=== PATIENT | female | born 1965 | race Caucasian/White ===

== ENCOUNTER 2018-02-17 10:31 | Emergency (ER) | payer SELFPAY ==
[2018-02-17 11:50] LABS: Urine Blood NEGATIVE (NEG); Urine Glucose NEGATIVE (NEG); Urine Protein NEGATIVE (NEG); Urine Specific Gravity 1.015 (1.005-1.030); Urine pH 8.5 (5.0-7.0)
--- NOTE | 2018-02-17 13:34 | RAD REPORT ---
EXAM DESCRIPTION: RAD - Chest Single View - 02/17/2018 11:59 am CLINICAL HISTORY: Chest pain, left-sided rib pain after trauma COMPARISON: Rib series same date TECHNIQUE: AP portable chest image was obtained 1146 hours . FINDINGS: Lungs are clear. Heart and vasculature are normal. No measurable pleural effusion and no p neumothorax. No gross bony abnormality seen. No acute aortic findings suspected. IMPRESSION: No acute cardiopulmonary process.
--- NOTE | 2018-02-17 13:34 | RAD REPORT ---
EXAM DESCRIPTION: RAD - Ribs Left - 02/17/2018 11:59 am CLINICAL HISTORY: Left-sided rib pain following trauma COMPARISON: None. FINDINGS: No displaced rib fracture is seen and no non-displaced rib fractures suspected. No aggress cali rib lesion. No underlying pneumothorax, effusion, infiltrate or pulmonary contusion. IMPRESSION: No rib fracture identified. No acute rib, pleural or parenchymal process. If warranted clinically and if it would alter management, a bone scan study could be performed to miguel luate for rib injury that may be occult on plain film.
--- NOTE | 2018-02-17 13:37 | ER ---
Nurse's Notes [facility] Name: Aundrea Prince Age: 52 yrs Sex: Female : 1965 Arrival Date: 02/17/2018 Time: 10:34 Bed 11 Private MD: Diagnosis: Other chest pain-Left Lower Ribs Presentation: 02/17 10:51 Presenting complaint: Patient states: Left sided rib pain 8/10 after leaning over center console in car and felt a pop last night. Denies SOB. Transition of care: patient was not received from another setting of care. Onset of symptoms was February 16, 2018. Care prior to arrival: None. 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 - Social history:: Smoking status: Patient/guardian denies using tobacco. Screenin:04 Abuse screen: Denies threats or abuse. Denies injuries from another. Nutritional aj screening: No deficits noted. Tuberculosis screening: No symptoms or risk factors identified. Fall Risk None identified. Assessment: 11:04 General: Appears in no apparent distress. comfortable, Behavior is calm, cooperative, aj appropriate for age. Pain: Complains of pain in left seventh rib and left eighth rib. Neuro: Level of Consciousness is awake, alert, obeys commands, Oriented to person, place, time, situation. Respiratory: Airway is patent Respiratory effort is even, unlabored, Respiratory pattern is regular, symmetrical. Derm: Skin is intact, is healthy with good turgor, Skin is pink, warm \T\ dry. normal. Musculoskeletal: Reports pain in left seventh rib and left eighth rib. Vital Signs: 10:55 BP 122 / 78; Pulse 71; Resp 16; Temp 98.2; Pulse Ox 100% on R/A; Weight 74.39 kg (R); hb Height 5 ft. 5 in. (165.10 cm); Pain 8/10; 10:55 Body Mass Index 27.29 (74.39 kg, 165.10 cm) hb ED Course: 10:34 Patient arrived in ED. na 10:54 Triage completed. hb 10:55 Arm band placed on left wrist. hb 10:57 Lisa Díaz, RN is Primary Nurse. aj 11:03 Benjamin Grady PA is PHCP. cp 11:03 Ruddy Blanco MD is Attending Physician. cp 11:04 Patient has correct armband on for positive identification. aj 11:04 No provider procedures requiring assistance completed. aj 11:50 X-ray completed. Patient tolerated procedure well. Patient moved back from radiology. jr1 13:43 Patient did not have IV access during this emergency room visit. aj Administered Medications: No medications were administered Outcome: 13:37 Discharge ordered by MD. cp 13:43 Discharged to home ambulatory. aj 13:43 Condition: good 13:43 Discharge instructions given to patient, Instructed on discharge instructions, follow up and referral plans. medication usage, Demonstrated understanding of instructions, follow-up care, medications, Prescriptions given X 3. 13:43 Patient left the ED. aj Signatures: Lisa Díaz, RN RN Victorino Garcia Jennifer jr1 Benjamin Grady PA PA cp Baxter, Heather, RN RN hb Corrections: (The following items were deleted from the chart) 10:55 10:51 Acuity: SERINA 3 hb hb
--- NOTE | 2018-02-17 13:37 | EDPHYS ---
Physician Documentation [facility] Name: Aundrea Prince Age: 52 yrs Sex: Female : 1965 Arrival Date: 02/17/2018 Time: 10:34 Bed 11 Private MD: ED Physician Ruddy Blanco HPI: 02/17 11:17 This 52 yrs old Female presents to ER via Ambulatory with complaints of Left cp Side Pain. 11:17 The patient or guardian reports chest pain that is located primarily in the left cp lateral lower rib area. Onset: The symptoms/episode began/occurred yesterday. Associated signs and symptoms: Pertinent negatives: abdominal pain, cough, lower extremity pain, lower extremity swelling, lightheadedness, near syncope, palpitations, shortness of breath, syncope. 11:17 Patient reports pain left lateral rib area below breast after reaching across center cp console in car last night. 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 - Social history:: Smoking status: Patient/guardian denies using tobacco. ROS: 11:18 Eyes: Negative for injury, pain, redness, and discharge. cp 11:18 Constitutional: Negative for body aches, chills, fever, poor PO intake. 11:18 ENT: Negative for drainage from ear(s), ear pain, sore throat, difficulty swallowing, cp difficulty handling secretions. 11:18 Neck: Negative for pain with movement, pain at rest, stiffness, tenderness, bony tenderness. 11:18 Cardiovascular: Positive for pain below breast left lateral rib area. 11:18 Respiratory: Negative for cough, shortness of breath, wheezing. cp 11:18 Abdomen/GI: Negative for abdominal pain, nausea, vomiting, and diarrhea, constipation, black/tarry stool, rectal bleeding. 11:18 Back: Negative for pain at rest, pain with movement, radiated pain. 11:18 : Negative for urinary symptoms. 11:18 MS/extremity: Negative for injury or acute deformity, decreased range of motion, pain, paresthesias. 11:18 Skin: Negative for cellulitis, rash. 11:18 Neuro: Negative for altered mental status, headache, syncope, near syncope, weakness. 11:18 All other systems are negative. Exam: 11:25 Constitutional: The patient appears in no acute distress, alert, awake, cp non-diaphoretic, non-toxic, well developed, well nourished. 11:25 Head/Face: Normocephalic, atraumatic. cp 11:25 Eyes: Periorbital structures: appear normal, Conjunctiva: normal, no exudate, no injection, Sclera: no appreciated abnormality, Lids and lashes: appear normal, bilaterally. 11:25 ENT: External ear(s): are unremarkable, Nose: is normal, Mouth: Lips: moist, Oral mucosa: moist, Posterior pharynx: is normal, airway is patent, no erythema, no exudate. 11:25 Neck: C-spine: vertebral tenderness, is not appreciated, crepitus, is not appreciated, ROM/movement: is normal, is supple, without pain, no range of motions limitations, no nuchal rigidity. 11:25 Chest/axilla: Inspection: normal, Palpation: crepitus, is not appreciated, tenderness, that is moderate, of the left lateral rib area below breast. 11:25 Cardiovascular: Rate: normal, Rhythm: regular, Pulses: Pulses are 2+ in right radial artery and left radial artery. Edema: is not appreciated, JVD: is not appreciated. 11:25 Respiratory: the patient does not display signs of respiratory distress, Respirations: normal, no use of accessory muscles, no retractions, no splinting, no tachypnea, labored breathing, is not present, Breath sounds: are clear throughout, no decreased breath sounds, no stridor, no wheezing. 11:25 Abdomen/GI: Inspection: abdomen appears normal, Palpation: abdomen is soft and non-tender, in all quadrants, rebound tenderness, is not appreciated, voluntary guarding, is not appreciated, involuntary guarding, is not appreciated. 11:25 Back: vertebral tenderness, is not appreciated. 11:25 Skin: cellulitis, is not appreciated, no rash present. Vital Signs: 10:55 BP 122 / 78; Pulse 71; Resp 16; Temp 98.2; Pulse Ox 100% on R/A; Weight 74.39 kg (R); hb Height 5 ft. 5 in. (165.10 cm); Pain 8/10; 10:55 Body Mass Index 27.29 (74.39 kg, 165.10 cm) hb MDM: 11:04 Patient medically screened. cp 11:30 Differential diagnosis: Blunt Chest Trauma Chest Wall Contusion Chest Wall Injury cp Pleural Effusion Pneumothorax Pulmonary Contusion Rib Fracture. 13:35 Data reviewed: vital signs, nurses notes, lab test result(s), radiologic studies, plain cp films, and as a result, I will discharge patient. 13:36 Counseling: I had a detailed discussion with the patient and/or guardian regarding: the cp historical points, exam findings, and any diagnostic results supporting the discharge/admit diagnosis, radiology results, the need for outpatient follow up, a family practitioner, to return to the emergency department if symptoms worsen or persist or if there are any questions or concerns that arise at home. 13:36 Response to treatment: There is no appreciated change of the patient's symptoms at this cp time, and as a result, I will discharge patient. 02/17 11:48 Order name: Urine Dipstick--Ancillary (enter results) ss 02/17 11:51 Order name: Urine Dipstick-Ancillary; Complete Time: 12:54 EDMS 02/17 11:20 Order name: XRAY Ribs LEFT cp 02/17 11:20 Order name: XRAY Chest (1 view) cp 02/17 13:35 Order name: RAD EDMS 02/17 13:35 Order name: RAD EDMS 02/17 11:20 Order name: Urine Dipstick-Ancillary (obtain specimen); Complete Time: 11:47 cp 02/17 11:20 Order name: Urine Test (obtain specimen); Complete Time: 11:47 cp Administered Medications: No medications were administered Disposition: 02/17/18 13:37 Discharged to Home. Impression: Other chest pain - Left Lower Ribs. - Condition is Stable. - Discharge Instructions: Rib Contusion. - Prescriptions for Naprosyn 500 mg Oral Tablet - take 1 tablet by ORAL route 2 times per day take with food; 20 tablet. Skelaxin 800 mg Oral Tablet - take 1 tablet by ORAL route every 8 hours As needed no driving while taking medication; 30 tablet. Tramadol 50 mg Oral Tablet - take 1 tablet by ORAL route every 8 hours as needed. no driving while taking medication; 20 tablet. - Medication Reconciliation Form, Thank You Letter, Antibiotic Education, Prescription Opioid Use form. - Follow up: Private Physician; When: 2 - 3 days; Reason: Recheck today's complaints. - Problem is new. - Symptoms are unchanged. Addendum: 02/20/2018 19:13 Co-signature as Attending Physician, Ruddy Blanco MD I agree with the assessment and w a plan of care. Signatures: Dispatcher [employer] Lisa Andrew RN RN aj Page, Corey, PA PA cp Baxter, Heather, RN Ruddy Moralez MD MD ak
== END 2018-02-17 13:43 | disposition home or self-care (01) ==
LOC: ER 10:31
DX: R07.89 Other chest pain (principal); Z88.2 Allergy status to sulfonamides
CPT/HCPCS: 71045; 81003; 99283